=== PATIENT | male | born 1955 | race Caucasian/White ===

== ENCOUNTER → 2019-05-05 | Outpatient (CLI) | payer BC ==
[~2019-05-05] MED LIST: Cialis20 MG PO; Multiple Vitam1 EACH PO; SILD25T; TUMS X-STR300 MG
== END | disposition home or self-care (01) ==
LOC: LAB SHORT 07:36 → PLD 07:36
DX: L82.1 Other seborrheic keratosis (principal)
CPT/HCPCS: 88305